=== PATIENT | female | born 1990 | race Caucasian/White ===

== ENCOUNTER 2024-09-13 16:59 | Outpatient (CLI) | payer BC, SELFPAY ==
[2024-09-13 11:46] LABS: Basophils % 0.2 % (0.1-2.0); Eosinophils # 0.1 K/mm3 (0.0-0.4); Hematocrit 40.3 % (37.0-47.0); Hemoglobin 13.7 g/dL (12.2-16.2); Lymphocytes # 2.2 K/mm3 (0.7-4.5); Lymphocytes % 36.6 % (10-50); Mean Corpuscular Hemoglobin 30.4 pg (27.0-31.2); Mean Corpuscular Volume 89.6 fl (81-99); Mean Platelet Volume 9.5 fl (7.4-10.4); Monocytes # 0.4 K/mm3 (0.1-1.0); Monocytes % 6.4 % (1.7-9.3); Neutrophils # 3.3 K/mm3 (1.8-7.8); Neutrophils % 55.6 % (37.0-80.0); Platelet Count 212 K/mm3 (142-424); Red Cell Distribution Width 12.5 % (11.5-17.5); White Blood Count 5.9 K/mm3 (4.8-10.8)
[2024-09-13 12:07] LABS: Albumin Level 4.6 g/dl (3.5-5.0); Chloride 103 mmol/L (98-107)
[2024-09-13 12:08] LABS: Potassium 4.1 mmoL/L (3.5-5.1); Sodium 138 mmol/L (136-145)
[2024-09-13 12:10] LABS: Alanine Aminotransferase 17 U/L (12-78); Albumin/Globulin Ratio 1.9 (1.1-1.8); Alkaline Phosphatase 44 U/L (38-126); Anion Gap 12.1 mEq/L (5-15); Aspartate Amino Transferase 25 U/L (14-36); Bilirubin,Total 0.6 mg/dl (0.2-1.3); Blood Urea Nitrogen 11 mg/dl (7-17); Carbon Dioxide 27 mmol/L (22.0-30.0); Cholesterol 156 mg/dl (140-200); Estimated Glomerular Filt Rate 143 ml/min (>60); GFR (African American) 173 ML/MIN (>60); Globulin 2.4 g/dL (1.3-3.2); Phosphorous 3.5 mg/dl (2.5-4.5); Triglycerides 75 mg/dl (30-150); VLDL Cholesterol 15 mg/dL (0-40)
[2024-09-13 12:11] LABS: Chol/HDL Ratio 2.9 (1-3.5); Glucose 87 mg/dl (74-100); HDL Cholesterol 53 mg/dl (40-60); Magnesium 1.7 mg/dl (1.6-2.3)
[2024-09-13 12:22] LABS: Direct LDL Cholesterol 78.09 mg/dL (100-129)
[2024-09-13 12:27] LABS: 25-OH Vitamin D, Total 31.8 ng/mL (30-100)
[2024-09-13 12:42] LABS: Thyroid Stimulating Hormone 1.03 uIU/mL (0.465-4.68)
[2024-09-13 12:46] LABS: Ferritin 25.4 ng/ml (6.24-137)
[2024-09-13 13:22] LABS: Vitamin B12 731 pg/mL (239-931)
[2024-09-16 19:09] LABS: Vitamin B6 44.9 ug/L (3.4-65.2)
== END 2024-09-13 23:59 | disposition home or self-care (01) ==
LOC: LAB.DROPOF 17:00
PROVIDERS: PCP Nurse Practitioner Family; Visit Provider Nurse Practitioner Family
DX: F41.9 Anxiety disorder, unspecified (principal); G25.81 Restless legs syndrome; Z13.21 Encounter for screening for nutritional disorder; Z13.220 Encounter for screening for lipoid disorders
CPT/HCPCS: 80053; 80061; 82306; 82607; 82728; 83735; 84100; 84207; 84443; 84481; 85025

== ENCOUNTER 2024-10-13 13:33 | Outpatient (CLI) | payer BC, SELFPAY ==
--- NOTE | 2024-10-13 13:36 | US_ITS ---
PROCEDURE: US TRANSVAGINAL CLINICAL INDICATION: pelvic pain COMPARISON: No exams were available for comparison FINDINGS: Transvaginal sonographic images of the pelvis were obtained. UTERUS: 7.5cm x 4.8 cmx 3.2cm anteverted with a combined endometrial thickness of 13.6mm. There are least 3 small nabothian cysts in the cervix. There appears to be a small polyp within the endometrium and SIS after her menses would delineate this better. LEFT OVARY: 4.1cmx5.8 cmx2.8cm with a volume of 35.4ml. There are multiple small peripheral follicles. There is a 1.6 cm x 1.6 cm x 2 cm cyst in the left ovary that appears to be hemorrhagic and likely from a recent ovulation. RIGHT OVARY: 3.8 cmx 1.8 cmx2.1cm with a volume of 7.7ml. There are multiple small peripheral follicles giving the ovary a polycystic appearance. Both ovaries are seen and appear normal. Doppler flow to both ovaries are seen. There is moderate fluid in the cul-de-sac. The fluid has a grainy appearance and could be blood from a recent hemorrhagic cyst. IMPRESSION: 1. Anteverted uterus normal in shape and size. The endometrium appears normal but there may be a small polyp within the endometrium and SIS after her menses would delineate this better. 2. Right ovary appears normal and has multiple small peripheral follicles consistent with a polycystic ovary. 3. Within the left ovary there appears to be a hemorrhagic cyst measuring 2 cm 4. There is moderate fluid in the cul-de-sac that could be blood. Dictated by: Bryson Buckner MD 10/13/2024 14:47 Bryson Buckner MD in [facility] 10/13/2024 14:47
== END 2024-10-13 23:59 | disposition home or self-care (01) ==
LOC: RAD 13:34
PROVIDERS: PCP Nurse Practitioner Family; Visit Provider Nurse Practitioner Obstetrics & Gynecology
DX: R10.2 Pelvic and perineal pain (principal)
CPT/HCPCS: 76830